=== PATIENT | female | born 1990 | race African-American/Black ===

== ENCOUNTER 2020-09-08 07:57 | Inpatient (IN) | payer OTHER, MEDICAID ==
[2020-09-08] MEDS ORDERED: Misoprostol 50 MCG (1/2 of 100 MCG) Tab VAG ONE (08:14)
[2020-09-08] MEDS ORDERED: Misoprostol 25 MCG (1/4 of 100 MCG) Tab VAG PRN (08:14)
[2020-09-08] MEDS ORDERED: Lactated Ringers 1,000 ML IV SCH ×4 (08:15→18:00)
[2020-09-08] MEDS ORDERED: Lidocaine 1% 30 ML SDV INJECT PRN (08:52)
[2020-09-08] MEDS ORDERED: Acetaminophen 325 MG Tab PO PRN (08:52)
[2020-09-08] MEDS ORDERED: fentaNYL 100 MCG/2 ML SDV IVPUSH PRN (08:52)
[2020-09-08] MEDS ORDERED: Butorphanol 2 MG/ML SDV IVPUSH PRN ×2 (08:52)
[2020-09-08] MEDS ORDERED: Methylergonovine 0.2 MG/1 ML Amp IM PRN (08:52)
[2020-09-08] MEDS ORDERED: Lactated Ringers 1,000 ML IV ONE ×2 (08:52→18:09)
[2020-09-08] MEDS ORDERED: Tranexamic Acid 1,000 MG in Sodium Chloride 0.9% 100 ML IV PRN (08:52)
[2020-09-08] MEDS ORDERED: Misoprostol 400 MCG (4 X 100 MCG TAB) RECTAL PRN (08:52)
[2020-09-08] MEDS ORDERED: Sodium Chloride 0.9% 10 ML Syringe FLUSH PRN ×2 (08:52→17:49)
[2020-09-08] MEDS ORDERED: Carboprost Tromethamine 250 MCG/1 ML Amp IM PRN (08:52)
[2020-09-08] MEDS ORDERED: Ondansetron 4 MG/2 ML SDV IVPUSH PRN ×2 (08:52→19:26)
[2020-09-08] MEDS ORDERED: Oxytocin/Normal Saline 30 UNIT/500 ML BAG IV SCH ×2 (09:00→18:00)
--- NOTE | 2020-09-08 14:45 | PCM.LDHP ---
L&D History of Present Illness - General Date of Service: 09/08/20 Admit Problem/Dx: Patient Status Order with Admit Dx/Problem 09/08/20 08:52 Patient Status [ADT] Routine Admission Diagnosis/Problem Admission Diagnosis/Problem care Source of Information: Patient History Limitations: Reports: No Limitations - History of Present Illness Introduction:: 29-year-old at 38w5d presents for IOL for twin . She has been feeling uncomfortable but otherwise well. Babies have been active. No Giovanny- Patten contractions. No vaginal bleeding or leaking of fluid. No new headaches or vision changes. has been uncomplicated. - Related Data Allergies/Adverse Reactions: Allergies Allergy/AdvReac Type Severity Reaction Status Date / Time No Known Allergies Allergy Verified 09/08/20 10:48 Home Medications: Home Meds Mv-Mn/Iron/FA/Herbal/Digestive [ One Tablet] 1 tab PO DAILY 08/04/20 [History] Past Medical History Gastrointestinal History: Reports: Other (See Below) Other Gastrointestinal History: constipation SPA CONCIERGE History: Reports: - Past Surgical History HEENT Surgical History: Reports: None Social & Family History - Family History Family Medical History: Noncontributory - Tobacco Use Tobacco Use Status *Q: Current Status Unknown Second Hand Smoke Exposure: Yes - Caffeine Use Caffeine Use: Reports: Coffee, Soda - Recreational Drug Use Recreational Drug Use: No H&P Review of Systems - Review of Systems: Review Of Systems: See Below General: Reports: No Symptoms HEENT: Reports: No Symptoms Pulmonary: Reports: No Symptoms Cardiovascular: Reports: No Symptoms Gastrointestinal: Reports: No Symptoms Genitourinary: Reports: No Symptoms Musculoskeletal: Reports: Back Pain Skin: Reports: No Symptoms L&D Exam - Exam Exam: See Below - Vital Signs Vital Signs: Last Vital Signs Temp 36.4 C 09/08/20 12:45 Pulse 78 09/08/20 13:15 Resp 18 09/08/20 13:15 BP 122/76 09/08/20 13:15 Pulse Ox Weight: 84.822 kg - OB Specific Contraction Duration (sec): 40-70 Contraction Frequency (min): 4 Contraction Intensity: Mild Movement: Active Heart Tones: Present Heart Tones per Min: 135 (Twin A 135; Twin B 140) Presentation: Vertex - Brown Score Brown Score Cervix Position: Posterior Brown Score Consistency: Soft Brown Score Effacement: 51-70% Brown Score Dilation: 3-4 cm Brown Score Infant's Station: -2 Brown Score Total: 7 - Exam General: Alert, Oriented HEENT: Conjunctiva Clear, Contact Lenses Lungs: Clear to Auscultation, Normal Respiratory Effort Cardiovascular: Regular Rate, Regular Rhythm. No: Systolic Murmur, Diastolic Murmur Genitourinary: Normal external exam Back Exam: Normal Inspection Extremities: Normal Inspection, Pedal Edema (Trace bilateraly) Skin: Warm, Dry, Intact - Patient Data Lab Results Last 24 hrs: Laboratory Results - last 24 hr 09/08/20 09/08/20 Range/Units 08:30 09:10 WBC 6.8 (5.0-10.0) 10^3/uL RBC 4.11 L (4.2-5.4) 10^6/uL Hgb 12.5 (12.0-16.0) g/dL Hct 37.0 (37.0-47.0) % MCV 90.0 (80-100) fL MCH 30.4 (27.0-34.0) pg MCHC 33.8 (33.0-35.0) g/dL Plt Count 140 L (150-450) 10^3/uL SARS CoV-2 RNA Rapid ROMAINE Negative (NEGATIVE) Result Diagrams: 09/08/20 09:10 - Problem List (1) care in third trimester SNOMED Code(s): 413991462, 41679557, 63762121, 473127316, 887704173 ICD Code: Z34.93 - ENCNTR FOR SUPRVSN OF NORMAL PREG, UNSP, THIRD TRIMESTER Status: Acute Current Visit: Yes (2) Dichorionic diamniotic twin in third trimester SNOMED Code(s): 816171192 ICD Code: O30.043 - TWIN , DICHORIONIC/DIAMNIOTIC, THIRD TRIMESTER Status: Acute Current Visit: Yes Problem List Initiated/Reviewed/Updated: Yes Orders Last 24hrs: Active Orders 24 hr Category Date Time Status Patient Status [ADT] Routine ADT 09/08/20 08:52 Active Communication Order [RC] ASDIRECTED Care 09/08/20 08:52 Active Nitrous Oxide Delivery [RC] ASDIRECTED Care 09/08/20 08:55 Active Notify Provider Vital Signs OB [RC] ASDIRECTED Care 09/08/20 08:52 Active Notify Provider [RC] PRN Care 09/08/20 08:52 Active OB Discontinue Nitrous Oxide [RC] ASDIRECTED Care 09/08/20 08:55 Active Pump Management, Intrathecal [RC] ASDIRECTED Care 09/08/20 08:52 Active Up ad Kaylin [RC] ASDIRECTED Care 09/08/20 08:52 Active Vital Signs [RC] PER UNIT ROUTINE Care 09/08/20 08:52 Active Regular Diet [DIET] Diet 09/08/20 Lunch Active OB Ltd 1 or More Fetus [US] Routine Exams 09/08/20 13:04 Ordered Acetaminophen [TylenoL] Med 09/08/20 08:52 Active 650 mg PO Q4H PRN Butorphanol [Stadol] Med 09/08/20 08:52 Active 0.5 mg IVPUSH Q3H PRN Butorphanol [Stadol] Med 09/08/20 08:52 Active 1 mg IVPUSH Q3H PRN Carboprost Tromethamine [Hemabate DS] Med 09/08/20 08:52 Active 250 mcg IM ASDIRECTED PRN Lactated Ringers [Ringers, Lactated] 1,000 ml Med 09/08/20 08:15 Active IV ASDIRECTED Lidocaine 1% [Xylocaine-MPF 1%] Med 09/08/20 08:52 Active 30 ml INJECT ASDIRECTED PRN Methylergonovine [Methergine] Med 09/08/20 08:52 Active 0.2 mg IM ASDIRECTED PRN Ondansetron [Zofran] Med 09/08/20 08:52 Active 4 mg IVPUSH Q4H PRN Oxytocin/Normal Saline [Pitocin in NS 30 UNIT/500 ML] Med 09/08/20 09:00 Active 30 unit in 500 ml IV TITRATE Sodium Chloride 0.9% [Saline Flush] Med 09/08/20 08:52 Active 10 ml FLUSH ASDIRECTED PRN Tranexamic Acid [Cyklokapron] 1,000 mg Med 09/08/20 08:52 Active Sodium Chloride 0.9% [Normal Saline] 100 ml IV ONETIME fentaNYL [Sublimaze] Med 09/08/20 08:52 Active 100 mcg IVPUSH Q1H PRN miSOPROStoL [Cytotec] Med 09/08/20 08:14 Active 25 mcg VAG Q4H PRN miSOPROStoL [Cytotec] Med 09/08/20 08:52 Active 800 mcg RECTAL ASDIRECTED PRN Saline Lock Insert [OM.PC] Routine Oth 09/08/20 08:52 Ordered Resuscitation Status Routine Resus Stat 09/08/20 08:52 Ordered Medication Orders Acetaminophen (Tylenol) 650 mg PO Q4H PRN PRN Reason: Pain (Mild 1-3) and fever Butorphanol Tartrate (Stadol) 0.5 mg IVPUSH Q3H PRN PRN Reason: Pain (moderate 4-6) Butorphanol Tartrate (Stadol) 1 mg IVPUSH Q3H PRN PRN Reason: Pain (moderate 4-6) Carboprost Tromethamine (Hemabate Ds) 250 mcg IM ASDIRECTED PRN PRN Reason: HEMORRHAGE Fentanyl (Sublimaze) 100 mcg IVPUSH Q1H PRN PRN Reason: Pain (severe 7-10) Lactated Ringer's (Ringers, Lactated) 1,000 mls @ 125 mls/hr IV ASDIRECTED CHANDRA Last Admin: 09/08/20 09:23 Dose: 125 mls/hr Documented by: HARJINDER Tranexamic Acid 1,000 mg/ (Sodium Chloride) 110 mls @ 660 mls/hr IV ONETIME PRN PRN Reason: Bleeding Oxytocin/Sodium Chloride (Pitocin In Ns 30 Unit/500 Ml) 30 unit in 500 mls @ 2 mls/hr IV TITRATE CHANDRA; Protocol Last Titration: 09/08/20 13:10 Dose: 10 munits/min, 10 mls/hr Documented by: Titration: 09/08/20 12:10 Dose: 8 munits/min, 8 mls/hr Documented by: Titration: 09/08/20 10:30 Dose: 6 munits/min, 6 mls/hr Documented by: Titration: 09/08/20 10:00 Dose: 4 munits/min, 4 mls/hr Documented by: Admin: 09/08/20 09:24 Dose: 2 munits/min, 2 mls/hr Documented by: HARJINDER Lidocaine HCl (Xylocaine-Mpf 1%) 30 ml INJECT ASDIRECTED PRN PRN Reason: Perineal Repair Methylergonovine Maleate (Methergine) 0.2 mg IM ASDIRECTED PRN PRN Reason: Hemorrhage Misoprostol (Cytotec) 25 mcg VAG Q4H PRN PRN Reason: Other Misoprostol (Cytotec) 800 mcg RECTAL ASDIRECTED PRN PRN Reason: Hemorrhage Ondansetron HCl (Zofran) 4 mg IVPUSH Q4H PRN PRN Reason: Nausea/Vomiting Sodium Chloride (Saline Flush) 10 ml FLUSH ASDIRECTED PRN PRN Reason: Keep Vein Open Assessment/Plan Comment:: 1. Initiate routine intrapartum orders 2. As patient is 3.5 cm dilated, will initiate pitocin for induction 3. AROM when able 4. Patient does not desire intrathecal. May want IV pain medications or nitrous oxide. 5. Expectant management. Anticipate . Ultrasound and OR notified of patient's admission. Dr. Serena Belle MD
--- NOTE | 2020-09-08 14:47 | PCM.PNLD ---
Labor Progress Note - VS & Meds Vital Signs: Last Vital Signs Temp 36.4 C 09/08/20 12:45 Pulse 78 09/08/20 13:15 Resp 18 09/08/20 13:15 BP 122/76 09/08/20 13:15 Pulse Ox Active Medications: Current Medications Acetaminophen (Tylenol) 650 mg PO Q4H PRN PRN Reason: Pain (Mild 1-3) and fever Butorphanol Tartrate (Stadol) 0.5 mg IVPUSH Q3H PRN PRN Reason: Pain (moderate 4-6) Butorphanol Tartrate (Stadol) 1 mg IVPUSH Q3H PRN PRN Reason: Pain (moderate 4-6) Carboprost Tromethamine (Hemabate Ds) 250 mcg IM ASDIRECTED PRN PRN Reason: HEMORRHAGE Fentanyl (Sublimaze) 100 mcg IVPUSH Q1H PRN PRN Reason: Pain (severe 7-10) Lactated Ringer's (Ringers, Lactated) 1,000 mls @ 125 mls/hr IV ASDIRECTED CHANDRA Last Admin: 09/08/20 09:23 Dose: 125 mls/hr Documented by: Tranexamic Acid 1,000 mg/ (Sodium Chloride) 110 mls @ 660 mls/hr IV ONETIME PRN PRN Reason: Bleeding Oxytocin/Sodium Chloride (Pitocin In Ns 30 Unit/500 Ml) 30 unit in 500 mls @ 2 mls/hr IV TITRATE CHANDRA; Protocol Last Titration: 09/08/20 13:10 Dose: 10 munits/min, 10 mls/hr Documented by: Lidocaine HCl (Xylocaine-Mpf 1%) 30 ml INJECT ASDIRECTED PRN PRN Reason: Perineal Repair Methylergonovine Maleate (Methergine) 0.2 mg IM ASDIRECTED PRN PRN Reason: Hemorrhage Misoprostol (Cytotec) 25 mcg VAG Q4H PRN PRN Reason: Other Misoprostol (Cytotec) 800 mcg RECTAL ASDIRECTED PRN PRN Reason: Hemorrhage Ondansetron HCl (Zofran) 4 mg IVPUSH Q4H PRN PRN Reason: Nausea/Vomiting Sodium Chloride (Saline Flush) 10 ml FLUSH ASDIRECTED PRN PRN Reason: Keep Vein Open Discontinued Medications Lactated Ringer's (Ringers, Lactated) 1,000 mls @ 999 mls/hr IV BOLUS ONE Stop: 09/08/20 09:52 Misoprostol (Cytotec) 50 mcg VAG ONETIME ONE Stop: 09/08/20 08:15 - Uterine Contractions Uterine Monitoring Mode: External [place] Contraction Frequency (min): 4 Contraction Duration (sec): 40-70 Contraction Intensity: Mild Uterine Resting Tone: Soft - Monitoring Heart Rate (FHR) Baseline: 135 (135/1470) Heart Rate (FHR) Variability: Moderate (6-25 bmp) Accelerations: Present, 15x15 Decelerations: None Strip Review: Category I - Vaginal Exam Dilation (cm): 5 Effacement (Percent): 60 Station: -1 Cervical Position: Posterior Sterile Vaginal Exam Performed By: Serena Belle - Labor Progress (Free Text) Labor Progress: AROM performed for moderate amount of clear fluid. Patient tolerated well. Continue expectant management.
[2020-09-08] MEDS ORDERED: ceFAZolin 2 GM in Premix Bag 1 BAG IV ONE (17:49)
[2020-09-08] MEDS ORDERED: Citric Acid/Sodium Citrate Solution 30 ML Cup PO ONE (17:49)
[2020-09-08] MEDS ORDERED: Citric Acid/Sodium Citrate Solution 30 ML Cup ONE (17:51)
[2020-09-08] MEDS ORDERED: Oxytocin/Normal Saline 60 UNIT/1,000 ML BAG ONE (17:58)
[2020-09-08] MEDS ORDERED: Morphine PF 1 MG/ML Amp IVPUSH ONE (18:09)
[2020-09-08] MEDS ORDERED: Ketorolac 30 MG/ML SDV IVPUSH ONE (18:09)
--- NOTE | 2020-09-08 18:33 | US ---
PROCEDURE INFORMATION: Exam: US , Limited Exam date and time: 09/08/2020 5:01 PM Age: 29 years old Clinical indication: Condition or disease; Lmp or gestational age (weeks): 36w5d; Other: Baby b presentation; 4th ; ; Additional info: Multiple gestation induction. Presentation of baby b after delivery of baby a TECHNIQUE: Imaging protocol: Real-time ultrasound of the maternal uterus with image documentation. Exam focused on the clinical indication. COMPARISON: No relevant prior studies available. Findings: A limited obstetrical ultrasound was performed. The patient was with twins at 36 weeks 5 days. Baby A was delivered. The patient's doctor requested ultrasound to evaluate positioning of Baby B. A single live intrauterine gestation was identified in transverse lie, with the head in the left upper quadrant. The baby could not be shifted, despite multiple attempts at turning. Impression: Baby B in transverse lie with the head in the left upper quadrant of the uterus.
[2020-09-08] MEDS ORDERED: ePHEDrine 50 MG/ML SDV IVPUSH PRN (19:26)
[2020-09-08] MEDS ORDERED: diphenhydrAMINE 50 MG/ML SDV IVPUSH PRN (19:26)
[2020-09-08] MEDS ORDERED: Naloxone 2 MG/2 ML Syringe IVPUSH PRN (19:26)
[2020-09-08] MEDS ORDERED: Ketorolac 30 MG/ML SDV IVPUSH SCH (19:30)
[2020-09-08] MEDS: Lactated Ringers 1,000 ML IV SCH (19:57)
[2020-09-08] MEDS: Simethicone 80 MG Tab.Chew PO SCH (22:16)
[2020-09-08] MEDS: Docusate Sodium 100 MG Cap PO PRN (22:16)
[2020-09-09] MEDS: Ketorolac 30 MG/ML SDV IVPUSH SCH ×3 (01:30→13:12)
[2020-09-09] MEDS: Lactated Ringers 1,000 ML IV SCH ×2 (01:34→10:45)
[2020-09-09] MEDS: ceFAZolin 1 GM in Premix Bag 1 BAG IV SCH ×2 (05:03→17:07)
[2020-09-09] MEDS: Simethicone 80 MG Tab.Chew PO SCH ×5 (07:50→21:33)
[2020-09-09] MEDS: Docusate Sodium 100 MG Cap PO PRN ×2 (07:53→21:34)
[2020-09-09] MEDS: Prenatal Multivitamin with Calcium/Folic Acid/Iron Tab PO SCH ×2 (07:53→09:14)
[2020-09-09] MEDS ORDERED: Oxytocin/Normal Saline 30 UNIT/500 ML BAG IV ONE (16:02)
[2020-09-09] MEDS: Acetaminophen/oxyCODONE 325-5 MG Tab PO PRN ×2 (16:04→21:36)
[2020-09-09] MEDS: Ibuprofen 800 MG Tab PO PRN (21:34)
[2020-09-10] MEDS: Acetaminophen/oxyCODONE 325-5 MG Tab PO PRN ×3 (01:55→12:25)
[2020-09-10] MEDS: Ibuprofen 800 MG Tab PO PRN ×2 (05:03→14:00)
[2020-09-10] MEDS: ceFAZolin 1 GM in Premix Bag 1 BAG IV SCH (05:05)
[2020-09-10] MEDS: Prenatal Multivitamin with Calcium/Folic Acid/Iron Tab PO SCH (08:23)
[2020-09-10] MEDS: Simethicone 80 MG Tab.Chew PO SCH ×2 (08:23→12:25)
[2020-09-10] MEDS: Docusate Sodium 100 MG Cap PO PRN (08:23)
[2020-09-10 12:40] VITALS: BP 127/76; PULSE 88
--- NOTE | 2020-09-14 00:14 | PCM.DCSUM1 ---
Discharge Summary - Discharge Data Discharge Disposition: Home, Self-Care 01 Condition: Stable - Referral to Home Health Primary Care Physician: Nia Belle MD - Discharge Diagnosis/Problem(s) (1) care in third trimester SNOMED Code(s): 987775756, 08982567, 13631211, 510058827, 258679949 ICD Code: Z34.93 - ENCNTR FOR SUPRVSN OF NORMAL PREG, UNSP, THIRD TRIMESTER Status: Acute (2) Dichorionic diamniotic twin in third trimester SNOMED Code(s): 117542695 ICD Code: O30.043 - TWIN , DICHORIONIC/DIAMNIOTIC, THIRD TRIMESTER Status: Acute - Patient Instructions Diet: Regular Diet as Tolerated Activity: As Tolerated, No Lifting Over 20 Pounds Driving: Do Not Drive (while taking pain medication) Showering/Bathing: May Shower Wound/Incision Care: Keep Operative Site/Wound Site Clean and Dry Notify Provider of: Fever, Increased Pain, Swelling and Redness, Drainage, Nausea and/or Vomiting - Discharge Plan *PRESCRIPTION DRUG MONITORING PROGRAM REVIEWED*: No *COPY OF PRESCRIPTION DRUG MONITORING REPORT IN PATIENT MIRZA: No Home Medications: Home Meds Mv-Mn/Iron/FA/Herbal/Digestive [ One Tablet] 1 tab PO DAILY 08/04/20 [History] Acetaminophen [Tylenol] 650 mg PO Q4H PRN tablet 09/10/20 [Rx] Acetaminophen/oxyCODONE [Percocet 325-5 MG] 1 tab PO Q4H PRN tablet 09/10/20 [Rx] Docusate Sodium [Colace] 100 mg PO Q12H PRN cap 09/10/20 [Rx] Ibuprofen [Motrin] 800 mg PO Q8H PRN tablet 09/10/20 [Rx] Patient Handouts: Baby Blues, Care After Delivery, Incision Care, Adult, Bits-ad-Gmlg, Care After Vaginal Delivery Referrals: Serena Belle MD [Primary Care Provider] - (6-8 weeks for visit) - Patient Data Vitals - Most Recent: Last Vital Signs Temp 36.7 C 09/10/20 12:00 Pulse 88 09/10/20 12:00 Resp 16 09/10/20 12:00 BP 127/76 09/10/20 12:00 Pulse Ox 99 09/10/20 12:00 Weight - Most Recent: 84.822 kg Med Orders - Current: Current Medications Discontinued Medications Acetaminophen (Tylenol) 650 mg PO Q4H PRN PRN Reason: Pain (Mild 1-3) and fever Butorphanol Tartrate (Stadol) 0.5 mg IVPUSH Q3H PRN PRN Reason: Pain (moderate 4-6) Butorphanol Tartrate (Stadol) 1 mg IVPUSH Q3H PRN PRN Reason: Pain (moderate 4-6) Carboprost Tromethamine (Hemabate Ds) 250 mcg IM ASDIRECTED PRN PRN Reason: HEMORRHAGE Citric Acid/Sodium Citrate (Bicitra Solution) 30 ml PO ONETIME ONE Stop: 09/08/20 17:50 Last Admin: 09/08/20 17:55 Dose: 30 ml Documented by: Citric Acid/Sodium Citrate (Bicitra Solution) Confirm Administered Dose 30 ml .ROUTE .STK-MED ONE Stop: 09/08/20 17:52 Last Admin: 09/08/20 19:44 Dose: Not Given Documented by: Diphenhydramine HCl (Benadryl) 25 mg IVPUSH Q6H PRN PRN Reason: Itching or Nausea Docusate Sodium (Colace) 100 mg PO Q12H PRN PRN Reason: Constipation Last Admin: 09/10/20 08:23 Dose: 100 mg Documented by: Ephedrine Sulfate (Ephedrine Sulfate) 5 mg IVPUSH SEECOMMENT PRN PRN Reason: Other Fentanyl (Sublimaze) 100 mcg IVPUSH Q1H PRN PRN Reason: Pain (severe 7-10) Lactated Ringer's (Ringers, Lactated) 1,000 mls @ 125 mls/hr IV ASDIRECTED CHANDRA Last Admin: 09/08/20 09:23 Dose: 125 mls/hr Documented by: Lactated Ringer's (Ringers, Lactated) 1,000 mls @ 999 mls/hr IV BOLUS ONE Stop: 09/08/20 09:52 Last Admin: 09/08/20 22:12 Dose: Not Given Documented by: Tranexamic Acid 1,000 mg/ (Sodium Chloride) 110 mls @ 660 mls/hr IV ONETIME PRN PRN Reason: Bleeding Oxytocin/Sodium Chloride (Pitocin In Ns 30 Unit/500 Ml) 30 unit in 500 mls @ 2 mls/hr IV TITRATE CHANDRA; Protocol Last Titration: 09/08/20 17:50 Dose: 0 munits/min, 0 mls/hr Documented by: Lactated Ringer's (Ringers, Lactated) 1,000 mls @ 125 mls/hr IV ASDIRECTED CHANDRA Lactated Ringer's (Ringers, Lactated) 1,000 mls @ 500 mls/hr IV BOLUS CHANDRA Oxytocin/Sodium Chloride (Pitocin In Ns 30 Unit/500 Ml) 30 unit in 500 mls @ 2 mls/hr IV TITRATE CHANDRA; Protocol Last Titration: 09/09/20 00:11 Dose: 0 munits/min, 0 mls/hr Documented by: Cefazolin Sodium/Dextrose 2 gm (/ Premix) 50 mls @ 100 mls/hr IV ONETIME ONE Stop: 09/08/20 18:18 Last Admin: 09/08/20 18:09 Dose: 100 mls/hr Documented by: Oxytocin/Sodium Chloride (Pitocin In Ns 30 Unit/500 Ml) Confirm Administered Dose 60 unit in 1,000 mls @ as directed .ROUTE .STK-MED ONE Stop: 09/08/20 17:59 Lactated Ringer's (Ringers, Lactated) 1,000 mls @ 125 mls/hr IV ASDIRECTED CHADNRA Last Infusion: 09/09/20 14:00 Dose: 0 mls/hr Documented by: Cefazolin Sodium/Dextrose 1 gm (/ Premix) 50 mls @ 100 mls/hr IV BID@0500,1700 [facility] Last Admin: 09/10/20 05:05 Dose: 100 mls/hr Documented by: Oxytocin/Sodium Chloride (Pitocin In Ns 30 Unit/500 Ml) 30 unit in 500 mls @ as directed IV .STK-MED ONE Stop: 09/09/20 16:03 Lactated Ringer's (Ringers, Lactated) 1,000 mls @ as directed IV .STK-MED ONE Stop: 09/08/20 18:10 Ibuprofen (Motrin) 800 mg PO Q8H PRN PRN Reason: mild pain or fever Last Admin: 09/10/20 14:00 Dose: 800 mg Documented by: Ketorolac Tromethamine (Toradol) 15 mg IVPUSH Q6H [facility] Stop: 09/09/20 07:31 Last Admin: 09/09/20 17:39 Dose: Not Given Documented by: Ketorolac Tromethamine (Toradol) 15 mg IVPUSH Q6H [facility] Stop: 09/09/20 13:31 Last Admin: 09/09/20 13:12 Dose: 15 mg Documented by: Ketorolac Tromethamine (Toradol) 30 mg IVPUSH .STK-MED ONE Stop: 09/08/20 18:10 Lidocaine HCl (Xylocaine-Mpf 1%) 30 ml INJECT ASDIRECTED PRN PRN Reason: Perineal Repair Methylergonovine Maleate (Methergine) 0.2 mg IM ASDIRECTED PRN PRN Reason: Hemorrhage Misoprostol (Cytotec) 25 mcg VAG Q4H PRN PRN Reason: Other Misoprostol (Cytotec) 50 mcg VAG ONETIME ONE Stop: 09/08/20 08:15 Last Admin: 09/08/20 15:50 Dose: Not Given Documented by: Misoprostol (Cytotec) 800 mcg RECTAL ASDIRECTED PRN PRN Reason: Hemorrhage Morphine Sulfate (Duramorph Pf) 0.2 mg IVPUSH .STK-MED ONE Stop: 09/08/20 18:10 Naloxone HCl (Narcan) 0.1 mg IVPUSH SEECOMMENT PRN PRN Reason: Respiratory Depression Ondansetron HCl (Zofran) 4 mg IVPUSH Q4H PRN PRN Reason: Nausea/Vomiting Ondansetron HCl (Zofran) 4 mg IVPUSH Q4H PRN PRN Reason: Nausea/Vomiting Oxycodone/Acetaminophen (Percocet 325-5 Mg) 1 tab PO Q4H PRN PRN Reason: Pain (moderate 4-6) Last Admin: 09/10/20 12:25 Dose: 1 tab Documented by: Oxycodone/Acetaminophen (Percocet 325-5 Mg) 2 tab PO Q4H PRN PRN Reason: Pain (moderate 4-6) Last Admin: 09/10/20 05:03 Dose: 2 tab Documented by: Prenat Multivit/Traffic Operations Manager/Iron/Folic Ac ( Plus Iron) 1 each PO DAILY [facility] Last Admin: 09/10/20 08:23 Dose: 1 each Documented by: Simethicone (Simethicone) 160 mg PO QID CHANDRA Last Admin: 09/10/20 12:25 Dose: 160 mg Documented by: Sodium Chloride (Saline Flush) 10 ml FLUSH ASDIRECTED PRN PRN Reason: Keep Vein Open Sodium Chloride (Saline Flush) 10 ml FLUSH ASDIRECTED PRN PRN Reason: Keep Vein Open
--- NOTE | 2020-09-14 00:14 | PCM.PRNOTE ---
- Free Text/Narrative Note: Section Operative Report Date of Surgery: Surgeon: Serena Belle MD Powertrain Design Engineer: Pre-Operative Diagnosis: Post-Operative Diagnosis: Same Procedure Performed: low transverse section Anesthesia: General EBL: mL IVF: mL Drains: Maria catheter with mL of urine output Specimens: Complications: None apparent Findings: Normal uterus, tubes, and ovaries. Indication and Consent: During labor the heart tracing began to show signs of developing hypoxemia. Conservative measures of oxygen supplementation and position changes did not relieve these findings. The oxytocin was discontinued and uterine rest was further facilitated with a dose of intravenous terbutaline. Nevertheless, the heart tracing continued to show evidence of worsening hypoxemia. section was recommended to the patient for wellbeing. The patient understood that the risks of section include, but are not limited to, visceral or vascular injury, infection, blood loss and need for blood transfusion, prolonged hospitalization, and reoperation. The patient stated understanding and desired to proceed. All questions were answered. Procedure in Detail: The patient was taken to the operating room. Maria catheter and pneumoboots were placed. She was then prepped and draped in routine fashion in dorsal supine position with a left taylor tilt. Two grams of cefazolin (Ancef) were given for infection prophylaxis. General anesthesia was administered. A Pfannenstiel skin incision was made with a scalpel and carried down to the fascia. The fascia was incised and extended laterally. The rectus musculature was in the midline down to the level of the pubic symphysis. The peritoneum was found to be free of adherent bowel or bladder tissue and entered bluntly. The peritoneal opening was then extended superiorly and inferiorly to the bladder reflection with good visualization of the bladder. The Jovanni retractor was placed. Brief intraabdominal survey revealed scant, clear peritoneal fluid and thinned-out lower uterine segment. The bladder blade was positioned to keep the bladder out of the operative field. The lower uterine segment was incised with a scalpel. The amniotic sac was ruptured with an Allis clamp and clear fluid was noted. The uterine incision was extended bluntly with lateral and upward traction. The fetus was in position. The was elevated out of the maternal pelvis with special attention paid to avoid using the uterine incision as a fulcrum. Gentle fundal pressure was applied once the was brought into the incision. The infant was delivered with minimal difficulty. Bulb suctioning of the infant's nose and mouth was performed on the operative field. The cord was clamped and cut in standard fashion, and the was handed over to the awaiting nursery staff. IV oxytocin was initiated to facilitate uterine contractions. The placenta was delivered intact with manual message of the uterine fundus along with gentle cord traction. The uterus was then exteriorized. The inside of the uterus was gently wiped with a lap sponge to assure complete removal of remaining products of conception. The uterine incision was closed with 0 - Vicryl suture in a running locked fashion. A second imbricating layer of 0- Vicryl was also placed. The incision was inspected and hemostasis achieved. The ovaries and tubes were visualized and found to be normal. The uterus, tubes, and ovaries were returned to the abdominal cavity. The blood clots and fluid were wiped out of the abdomen and pelvis with moist laparotomy sponges. The uterine incision was re-inspected along with all other incised surfaces and good hemostasis was confirmed. The Jovanni retractor was removed. The peritoneus was then closed using 2-0 Vicyrl. The fascia was then closed with 2-0 looped PDS suture with care not to include any underlying abdominal contents. The sub-cutaneous layer was reapproximated with plain suture. The skin was closed with 3-0 suture on a Matti needle in a subcuticular fashion. Dressing was applied. Sponge and instrument counts were reported as correct times two. Pt tolerated procedure well and was taken to PACU in stable condition. Sreena Belle MD
== END 2020-09-10 16:00 | disposition home or self-care (01) | DRG 788 ==
LOC: DL.OB 07:57 → OBSVTOIN 17:29
PROVIDERS: ADMIT Family Medicine; ATTEND Family Medicine
PROC: 10D00Z1 Extraction of Products of Conception, Low, Open Approach (ICD-10-PCS; principal; 2020-09-08)
DX: O30.043 Twin pregnancy, dichorionic/diamniotic, third trimester (principal); Z3A.38 38 weeks gestation of pregnancy; Z37.2 Twins, both liveborn; Z20.828 Contact with and (suspected) exposure to other viral communicable diseases; Z28.82 Immunization not carried out because of caregiver refusal
CPT/HCPCS: 01961; 36415; 51702; 59409; 76815; 85027; 86850; 86900; 86901; A9270-GY; J0690; J1885; J2274; J2590; J7120; U0002